=== PATIENT | male | born 1950 | race Caucasian/White ===

== ENCOUNTER 2020-11-13 14:29 | Emergency (ER) | payer OTHER ==
[~2020-11-13] VITALS: Ht 175.3 cm; Wt 88.6 kg
[~2020-11-13 14:29] MED LIST: LOSA25TA96 PO; SIMV-42 PO; TRAM200T36 PO
[2020-11-13 14:57] VITALS: BP 99/79
[2020-11-13] MEDS ORDERED: CEPH250T PO (15:58)
[2020-11-13] MEDS ORDERED: bacitracin 15gm ointment TP ONE (16:00)
[2020-11-13] MEDS ORDERED: CefTRIAXone 1000mg IM Kit (w/lidocaine diluent) IM ONE (16:00)
== END 2020-11-13 16:35 | disposition home or self-care (01) ==
LOC: ER 14:30
DX: S81.812A Laceration without foreign body, left lower leg, initial encounter (principal); Z98.890 Other specified postprocedural states; Z79.2 Long term (current) use of antibiotics; Z79.899 Other long term (current) drug therapy; X58.XXXA Exposure to other specified factors, initial encounter; Y93.89 Activity, other specified; Y92.89 Other specified places as the place of occurrence of the external cause; Y99.8 Other external cause status
CPT/HCPCS: 12034; 73590; 96372; 99284; J0696; 99283

== ENCOUNTER 2022-05-19 14:28 | Emergency (ER) | payer OTHER, MEDICARE ==
[~2022-05-19] VITALS: Ht 175.3 cm; Wt 90.0 kg
[~2022-05-19 14:28] MED LIST changes: +TRAM200T30 PO; -TRAM200T36 PO
[2022-05-19 15:01] VITALS: BP 133/73
[2022-05-19] MEDS ORDERED: LIDOcaine 1% 30ml preserv. free vial IJ ONE (15:50)
[2022-05-19] MEDS ORDERED: bacitracin 15gm ointment TP ONE (15:50)
== END 2022-05-19 16:53 | disposition home or self-care (01) ==
LOC: ER 14:30
DX: S61.215A Laceration without foreign body of left ring finger without damage to nail, initial encounter (principal); Z98.890 Other specified postprocedural states; Z79.899 Other long term (current) drug therapy; W21.07XA Struck by softball, initial encounter; Y93.89 Activity, other specified; Y92.89 Other specified places as the place of occurrence of the external cause; Y99.8 Other external cause status
CPT/HCPCS: 12001; 73140; 99283; J3490; A6258

== ENCOUNTER 2023-07-10 05:26 | Day surgery (SDC) | payer OTHER ==
[2023-07-02 14:50] LABS: BILIRUBIN,URINE NEGATIVE (Neg); CLARITY,URINE CLEAR (Clear); COLOR,URINE YELLOW (Yellow); GLUCOSE, URINE NEGATIVE (Neg); KETONES,URINE NEGATIVE (Neg); LEUKOCYTE ESTERASE ,URINE NEGATIVE (Neg); NITRITES, URINE NEGATIVE (Neg); OCCULT BLOOD,URINE NEGATIVE (Neg); PH,URINE 5.5 (4.8-8.0); PROTEIN,URINE NEGATIVE (Neg); UROBILINOGEN,URINE 0.2 E.U/dL (0.2-1.0)
[2023-07-02 14:53] LABS: UA COLLECTION TYPE CLN CATCH MIDSTREAM
[2023-07-02 14:57] LABS: BASOPHILS % (AUTO) 0.5 % (0-1); EOSINOPHILS # (AUTO) 0.1 X10'3 (0-0.9); EOSINOPHILS % (AUTO) 1.8 % (0-6); LYMPHOCYTES # (AUTO) 2.9 X10'3 (1.1-4.8); LYMPHOCYTES % (AUTO) 37.4 % (21-51); MEAN CORPUSCULAR HEMOGLOBIN 30.4 PG (27.0-31.0); MEAN CORPUSCULAR HGB CONC 34.1 g/dL (33.0-36.5); MEAN CORPUSCULAR VOLUME 89.3 FL (78-98); MEAN PLATELET VOLUME 7.3 FL (7.4-10.4); MONOCYTES # (AUTO) 0.7 X10'3 (0-0.9); MONOCYTES % (AUTO) 9.3 % (2-12); NEUTROPHILS # (AUTO) 3.9 X10'3 (1.8-7.7); PRE OP HEMATOCRIT 43.1 % (42.0-52.0); PRE OP HEMOGLOBIN 14.7 g/dL (14.0-17.9); PRE OP PLATELET COUNT 196 X10'3 (140-440); PRE OP WHITE BLOOD COUNT 7.6 10'3 (4.8-10.8); RED BLOOD COUNT 4.82 X10'6 (4.70-6.10); RED CELL DISTRIBUTION WIDTH 13.9 % (11.5-14.5)
[2023-07-02 15:10] LABS: ALBUMIN 3.6 G/DL (3.4-5.0); ALBUMIN/GLOBULIN RATIO 1.1 (1.1-1.5); ALKALINE PHOSPHATASE 69 IU/L (46-116); BLOOD UREA NITROGEN 26 MG/DL (7-18); CALCIUM 8.5 MG/DL (8.5-10.1); CHLORIDE 106 MMOL/L (99-107); PRE OP ALT 32 U/L (30-65); PRE OP ANION GAP 9 (8-16); PRE OP AST 29 U/L (10-37); PRE OP BILIRUB, TOTAL 0.5 MG/DL (0.0-1.0); PRE OP GLUCOSE 73 MG/DL (70-104); PRE OP POTASSIUM 4.1 MMOL/L (3.4-5.1); PRE OP SODIUM 143 MMOL/L (135-145); TOTAL CARBON DIOXIDE 27.6 MMOL/L (24-32); eGFR 73 ML/MIN
[2023-07-10] VITALS (10 sets, daily range): BP systolic 95–121; BP diastolic 67–78; PULSE 71–90; RESP 10–17; TEMP 97.9; O2SAT 95–100
[~2023-07-10] VITALS: Ht 175.3 cm; Wt 89.1 kg
[~2023-07-10 05:26] MED LIST changes: +ASCO-139 PO; +LOP12.5T PO; +LOSA-415 PO; -LOSA25TA96 PO; +OMEG-5 PO; -TRAM200T30 PO; +[UNRECOGNIZED DRUG - OTHER] PO
[2023-07-10] MEDS ORDERED: DOCUMENT DATE & TIME OF BETA-BLOCKER PO ONE (05:30)
[2023-07-10] MEDS: famotidine 20mg tablet PO ONE (06:06)
[2023-07-10] MEDS: ringers solution, lacted 1,000 ML IV SCH ×2 (06:07→08:25)
[2023-07-10] MEDS: cefazolin 2gm/D5W 100mL 100 ML IV ONE (06:08)
[2023-07-10] MEDS ORDERED: bacitracin 15gm ointment TP ONE (06:27)
[2023-07-10] MEDS ORDERED: BUPIVAcaine/PF 2.5mg/ml (0.25%) 10ml vial ONE (06:27)
[2023-07-10] MEDS ORDERED: cloNIDine hcl/PF 100mcg/ml inj ONE (07:16)
[2023-07-10] MEDS ORDERED: midazolam 1 mg/ML 2ml injection ONE (07:17)
[2023-07-10] MEDS ORDERED: sevoflurane 250ml liquid IH ONE (07:17)
[2023-07-10] MEDS ORDERED: fentaNYL /PF 50mcg/ml 5ml ampule ONE (07:18)
[2023-07-10] MEDS ORDERED: vancomycin 1,000mg inj ONE (08:07)
[2023-07-10] MEDS: bacitracin 15gm ointment TP ONE (08:09)
[2023-07-10] MEDS: vancomycin 1,000mg inj IVT ONE (08:09)
[2023-07-10] MEDS ORDERED: propofol inj 20 ML IV ONE ×2 (08:18→08:19)
[2023-07-10] MEDS ORDERED: ROPIVAcaine 0.5% (5mg/ml) 30ml vial ONE (08:18)
[2023-07-10] MEDS ORDERED: rocuronium 10mg/ml inj IV ONE (08:19)
[2023-07-10] MEDS ORDERED: ePHEDrine 50MG/ML INJ. ONE (08:19)
[2023-07-10] MEDS ORDERED: ondansetron/PF 4mg/2ml inj ONE (08:19)
[2023-07-10] MEDS ORDERED: LIDOcaine 2% (20mg/ml) 5ml vial ONE (08:19)
[2023-07-10] MEDS ORDERED: dexamethasone sod phosphate 4mg/ml inj. ONE (08:19)
[2023-07-10] MEDS ORDERED: 0.9 % SODIUM CHLORIDE 10 ML VIAL ONE ×2 (08:19)
[2023-07-10] MEDS ORDERED: labetalol 20mg/4ml (5mg/ml) syringe IV PRN (08:25)
[2023-07-10] MEDS ORDERED: morphine 2 MG/ML inj. syringe IV PRN (08:25)
[2023-07-10] MEDS ORDERED: hydrALAZINE 20mg/ml inj. IV PRN (08:25)
[2023-07-10] MEDS ORDERED: proCHLORperazine 10 MG/2 ml inj IV PRN (08:25)
[2023-07-10] MEDS ORDERED: ondansetron/PF 4mg/2ml inj IV PRN (08:25)
[2023-07-10] MEDS ORDERED: meperidine/PF 25mg/ml syringe IV PRN ×3 (08:25)
[2023-07-10] MEDS ORDERED: morphine 4 MG/ML inj SYRINge IV PRN (08:25)
[2023-07-10] MEDS: acetaminophen 1,000mg/100ml IV 100 ML IV ONE (09:24)
== END 2023-07-10 09:51 | disposition home or self-care (01) ==
LOC: PAS 05:26
PROVIDERS: ATTEND Podiatrist Foot & Ankle Surgery
DX: M92.62 Juvenile osteochondrosis of tarsus, left ankle (principal); M76.62 Achilles tendinitis, left leg; G89.18 Other acute postprocedural pain; I10 Essential (primary) hypertension; E78.00 Pure hypercholesterolemia, unspecified; I48.91 Unspecified atrial fibrillation; G47.33 Obstructive sleep apnea (adult) (pediatric); M19.90 Unspecified osteoarthritis, unspecified site; Z79.899 Other long term (current) drug therapy; Z90.49 Acquired absence of other specified parts of digestive tract; Z90.89 Acquired absence of other organs; Z98.890 Other specified postprocedural states
CPT/HCPCS: 27650; 28118; 36415; 64445; 64447; 73620; 80053; 81003; 82948; 85025; A6222; C1713; J0690; J0735; J1100; J2250; J2405; J2704; J2795; J3010; J3370; J3490; J7030; J7120; Z7506; Z7508; Z7512; 76000; A4215; A4618; A6253; A6449; A7000